=== PATIENT | male | born 1990 | race Two or more races ===

== ENCOUNTER 2016-11-18 18:23 | Emergency (ER) | payer MEDICAID ==
--- NOTE | 2016-11-18 20:03 | ED Physician Chart ---
Chief Complaint/HPI - Patient Information Date Seen:: 11/18/16 Time Seen:: 19:50 Chief Complaint:: altered mental status History of Present Illness:: Patient found down in a bathroom possibly at an Alcoholics Anonymous meeting. Patient gives no history. He is very agitated and using extreme profanity. Historian:: Patient, EMS Review:: Nurse's Note Reviewed Review of Systems - Review of Systems General/Constitutional: No chills Skin: No skin lesions Head: No headache Eyes: No loss of vision ENT: No earache Neck: No neck pain, No swelling Cardio Vascular: No chest pain Pulmonary: No SOB GI: No nausea, No vomiting G/U: No dysuria Musculoskeletal: No bone or joint pain Endocrine: No polyuria, No polydipsia Psychiatric: Other (unknown) Allergic/Immuno: No urticaria Neurological: No syncope Past Medical History - Past Medical History Past Medical History: Other (unavailable) Family History: Other Social History: Alcohol, Other (possibly consumed alcohol heavily) Surgical History: other (unavailable) Psychiatricy History: Other (unavailable) Physical Exam - Physical Examination General/Constitutional: Well-developed, well-nourished, Alert Other Gen/Cons comments:: Agitated and restless. Patient is currently in restraints Eyes: Lids, conjuctiva normal Skin: Nl inspection ENMT: External ears, nose nl Neck: No nuchal rigidity Respiratory: Nl effort/Exclusion, Clear to Auscultation Cardio Vascular: RRR GI: No tenderness/rebounding/guarding, No organomegaly : No CVA tenderness Extremities: No tenderness or effusion Neuro/Psych: No focal deficits Labs/Radiology/EKG Results - Lab Results Results: Laboratory Results - last 24 hr 11/18/16 20:22 Ethyl Alcohol 326 H ED Septic Shock - . Is Septic Shock (SBP<90, OR Lactate>4 mmol\L) present?: No Reassessment (Disposition) - Reassessment Reassessment:: at 2250 resting comfortably. Will discharge when normally alert and normally ambulatory. Reassessment Condition:: Improved - Aftercare/Follow up Instructions Aftercare/Follow-Up Instructions:: Refer to Discharge Instructions - Patient Disposition Discharge/Transfer:: Home Condition at Disposition:: Stable
== END 2016-11-19 06:55 | disposition home or self-care (01) ==
LOC: ER 18:23
DX: R41.82 Altered mental status, unspecified (principal)
CPT/HCPCS: 99283; 96372; 36415; 36416; 82948; 80320; J2060; Z7502